=== PATIENT | female | born 1990 | race American Indian/Alaskan Native ===

== ENCOUNTER 2016-06-13 11:43 | Outpatient (CLI) | payer MEDICAID ==
[2016-06-13] MEDS ORDERED: LACTATED RINGERS 500 ML IV ONE (11:54)
[2016-06-13 12:03] VITALS: BP 117/65
[2016-06-13 15:04] LABS: Bacteria,Urine 1+ /HPF (Negative); Bilirubin,Urine NEG (Negative); Blood,Urine NEG (Negative); Ketones,Urine NEG (Negative); Leukocyte Esterase,Urine LG (Negative); Mucus,Urine 2+ /HPF; Nitrite,Urine NEG (Negative); Urobilinogen,Urine < 2.0 mg/dL (<2.0)
[2016-06-13] MEDS ORDERED: BRETHINE SUB-Q ONE ×3 (16:01→17:19)
[2016-06-13] MEDS ORDERED: ceFAZolin 2 GM in NACL 0.9% 100 ML IV ONE ×2 (17:13→18:00)
[2016-06-13] MEDS ORDERED: ANCEF/STERILE WATER 2 GM/20 ML 2 GM/20 ML SYRINGE IV SCH (18:00)
== END 2016-06-13 18:17 | disposition home or self-care (01) ==
LOC: TRG 11:43
PROVIDERS: ATTEND Obstetrics & Gynecology
DX: O47.03 False labor before 37 completed weeks of gestation, third trimester (principal); Z3A.35 35 weeks gestation of pregnancy
CPT/HCPCS: 59025; 81001; 96360; 96361; 96365; 96372; J0690; J3105; J7120

== ENCOUNTER 2017-05-07 16:06 | Emergency (ER) | payer MEDICAID, OTHER ==
[2017-05-07 16:11] VITALS: BP 122/74
--- NOTE | 2017-05-07 17:04 | Emergency Department Report ---
Blank Doc - Documentation Documentation: 27 year old -[place] female comes to the ED with cough, congestion, sore throat, runny nose, for the past 5 days not improving with over-the- counter medications. No fever, no chills. History of HIV compliant with medications.
--- NOTE | 2017-05-07 18:13 | XRay Report ---
FINAL REPORT EXAM: XR CHEST ROUTINE 2V HISTORY: cough, uri, TECHNIQUE: PA and lateral views of the chest PRIORS: CXR 07/08/2016 FINDINGS: Lines, tubes, and devices: N/A Lungs and pleura: Trachea is normal in position. Lungs are clear of infiltrate, pleural effusion, vascular congestion, or pneumothorax. No change. Cardiomediastinal silhouette: Cardiac and mediastinal silhouettes are unremarkable. Other: Bony structures are intact. IMPRESSION: No acute cardiopulmonary process seen. No change.
--- NOTE | 2017-05-07 18:44 | Emergency Department Report ---
HPI - General Chief Complaint: Upper Respiratory Infection - HPI HPI: 27 year old -[place] female comes to the ED with cough, congestion, sore throat, runny nose, for the past 5 days not improving with over-the- counter medications. No fever, no chills. History of HIV compliant with medications. ED Past Medical Hx - Past Medical History Hx Hypertension: No Hx Congestive Heart Failure: No Hx Diabetes: No Hx Deep Vein Thrombosis: No Hx Renal Disease: No Hx Sickle Cell Disease: No Hx Seizures: No Hx Asthma: No Hx COPD: No Hx HIV: Yes - Surgical History Past Surgical History?: Yes Additional Surgical History: C/S - Social History Smoking Status: Never Smoker Substance Use Type: None - Medications Home Medications: Home Medications Medication Instructions Recorded Confirmed Last Taken Type Azithromycin 500 mg PO BID 04/10/15 07/06/16 07/05/16 History Doxycycline Hyclate [Doxycycline 100 mg PO BID 04/10/15 07/06/16 04/10/15 08:00 History Hyclate CAP] Fluconazole 150 mg PO BID 04/10/15 07/06/16 04/10/15 08:00 History Pnv with Ca,No.72/Iron/FA 1 tab PO DAILY 04/10/15 07/06/16 07/05/16 History [ Plus Tablet] Pnv with Ca,No.72/Iron/FA 1 tab PO DAILY 04/10/15 07/06/16 07/05/16 History [ Plus Tablet] Tinidazole 500 mg PO BID 04/10/15 07/06/16 04/10/15 08:00 History Valacyclovir HCl [valACYclovir] 500 mg PO BID 04/10/15 07/06/16 07/05/16 History 500 metroNIDAZOLE 500 mg PO BID 04/10/15 07/06/16 04/10/15 08:00 History oxyCODONE /ACETAMINOPHEN [Percocet 1 tab PO Q6HR PRN #40 tablet 04/10/15 Unknown Rx 5/325] Abacavir/Lamivudine/Zidovudine 1 tab PO BID #60 tablet 04/13/15 07/06/16 Rx [Aymsevlg-Qhwzxbhrmi-Bkghyauzaa TAB] Docusate Sodium [Colace] 100 mg PO BID PRN #60 capsule 04/13/15 07/06/16 Unknown Rx Ferrous Sulfate [Feosol 325 MG tab] 325 mg PO TID #120 tablet 04/13/15 07/06/16 Unknown Rx Ibuprofen [Motrin 800 MG tab] 800 mg PO Q6H PRN #40 tablet 04/13/15 07/06/16 Unknown Rx Ferrous Sulfate [Feosol 325 MG tab] 325 mg PO TID #60 tablet 07/07/16 Unknown Rx Ibuprofen [Motrin] 600 mg PO Q8H PRN #30 tablet 07/07/16 Unknown Rx oxyCODONE /ACETAMINOPHEN [Percocet 1 tab PO Q6HR PRN #30 tablet 07/07/16 Unknown Rx 5/325] Docusate Sodium [Colace] 100 mg PO BID PRN #60 capsule 07/08/16 Unknown Rx Benzonatate [Tessalon Perles] 100 mg PO Q8HR #30 capsule 05/07/17 Unknown Rx Cephalexin [Keflex] 500 mg PO Q12HR #14 cap 05/07/17 Unknown Rx ED Review of Systems ROS: Stated complaint: COLD SYMPTOMS Other details as noted in HPI Comment: All other systems reviewed and negative ENT: ear pain Respiratory: cough Cardiovascular: chest pain Physical Exam - Physical Exam Vital Signs: Vital Signs 05/07/17 16:10 Temperature 98.8 F Pulse Rate 94 H Respiratory 20 Rate Blood Pressure 122/74 [Right] O2 Sat by Pulse 100 Oximetry Physical Exam: - Physical Exam Physical Exam: - General Limitations: No Limitations General appearance: alert, in no apparent distress, obese - Head Head exam: Present: atraumatic, normocephalic - Eye Eye exam: Present: normal appearance - ENT ENT exam: Present: mucous membranes moist - Neck Neck exam: Present: normal inspection - Respiratory Respiratory exam: Present: normal lung sounds bilaterally. Absent: respiratory distress - Cardiovascular Cardiovascular Exam: Present: normal rhythm, tachycardia. Absent: systolic murmur, diastolic murmur, rubs, gallop - GI/Abdominal GI/Abdominal exam: Present: soft, normal bowel sounds - Extremities Exam Extremities exam: Present: normal inspection - Back Exam Back exam: Present: normal inspection - Neurological Exam Neurological exam: Present: alert, oriented X3 - Psychiatric Psychiatric exam: normal affect and mood - Skin Skin exam: Present: warm, dry, intact, normal color. Absent: rash ED Course Vital Signs 05/07/17 16:10 Temperature 98.8 F Pulse Rate 94 H Respiratory 20 Rate Blood Pressure 122/74 [Right] O2 Sat by Pulse 100 Oximetry Critical care attestation.: If time is entered above; I have spent that time in minutes in the direct care of this critically ill patient, excluding procedure time. ED Disposition Clinical Impression: Acute bronchitis Qualifiers: Bronchitis organism: unspecified organism Qualified Code(s): J20.9 - Acute bronchitis, unspecified Disposition: - TO HOME OR SELFCARE Is pt being admited?: No Does the pt Need Aspirin: No Condition: Stable Instructions: Acute Bronchitis (ED) Prescriptions: Benzonatate [Tessalon Perles] 100 mg PO Q8HR #30 capsule Cephalexin [Keflex] 500 mg PO Q12HR #14 cap Referrals: PRIMARY CARE, [Primary Care Provider] - 3-5 Days
== END 2017-05-07 18:52 | disposition home or self-care (01) ==
LOC: ED 16:06
DX: J02.9 Acute pharyngitis, unspecified (principal)
CPT/HCPCS: 71046

== ENCOUNTER 2017-11-24 09:51 | Emergency (ER) | payer SELFPAY ==
--- NOTE | 2017-11-24 13:38 | Emergency Department Report ---
ED Abdominal Pain HPI - General Chief Complaint: Abdominal Pain Stated Complaint: ABD PAIN Time Seen by Provider: 11/24/17 13:04 Source: patient Mode of arrival: Ambulatory Limitations: No Limitations - History of Present Illness Initial Comments: This is a 27-year-old -Cyp[place] female who presents with epigastric pain for one week. Past medical history of HIV. Patient reports pain is a burning sensation after eating meals. She is currently taking Zantac twice a day when no improvement of symptoms. Patient also reports pain is worse with laying flat. She reports some nausea without vomiting. She denies fever, chest pain, shortness of breath, frequency, urgency, dysuria. MD Complaint: abdominal pain Onset/Timin -: week(s) Location: epigastric Radiation: none Migration to: no migration Severity: moderate Severity scale (0 -10): 6 Quality: cramping Consistency: intermittent Improves With: nothing Worsens With: eating Associated Symptoms: nausea. denies: vomiting, diarrhea, fever, chills, constipation, dysuria, hematemesis, hematochezia, melena, hematuria, anorexia, syncope Treatments Prior to Arrival: antacids - Related Data LMP Date: 11/15/17 Home Medications Medication Instructions Recorded Confirmed Last Taken Azithromycin 500 mg PO BID 04/10/15 07/06/16 07/05/16 Doxycycline Hyclate [Doxycycline 100 mg PO BID 04/10/15 07/06/16 04/10/15 08:00 Hyclate CAP] Fluconazole 150 mg PO BID 04/10/15 07/06/16 04/10/15 08:00 Pnv with Ca,No.72/Iron/FA 1 tab PO DAILY 04/10/15 07/06/16 07/05/16 [ Plus Tablet] Pnv with Ca,No.72/Iron/FA 1 tab PO DAILY 04/10/15 07/06/16 07/05/16 [ Plus Tablet] Tinidazole 500 mg PO BID 04/10/15 07/06/16 04/10/15 08:00 Valacyclovir HCl [valACYclovir] 500 mg PO BID 04/10/15 07/06/16 07/05/16 500 metroNIDAZOLE 500 mg PO BID 04/10/15 07/06/16 04/10/15 08:00 Previous Rx's Medication Instructions Recorded Last Taken Type oxyCODONE /ACETAMINOPHEN [Percocet 1 tab PO Q6HR PRN #40 tablet 04/10/15 Unknown Rx 5/325] Abacavir/Lamivudine/Zidovudine 1 tab PO BID #60 tablet 04/13/15 07/05/16 Rx [Bnpxokod-Tmjlknvgzz-Ufgzzzwqjn TAB] Docusate Sodium [Colace] 100 mg PO BID PRN #60 capsule 04/13/15 Unknown Rx Ferrous Sulfate [Feosol 325 MG tab] 325 mg PO TID #120 tablet 04/13/15 Unknown Rx Ibuprofen [Motrin 800 MG tab] 800 mg PO Q6H PRN #40 tablet 04/13/15 Unknown Rx Ferrous Sulfate [Feosol 325 MG tab] 325 mg PO TID #60 tablet 07/07/16 Unknown Rx Ibuprofen [Motrin] 600 mg PO Q8H PRN #30 tablet 07/07/16 Unknown Rx oxyCODONE /ACETAMINOPHEN [Percocet 1 tab PO Q6HR PRN #30 tablet 07/07/16 Unknown Rx 5/325] Docusate Sodium [Colace] 100 mg PO BID PRN #60 capsule 07/08/16 Unknown Rx Benzonatate [Tessalon Perles] 100 mg PO Q8HR #30 capsule 05/07/17 Unknown Rx cephALEXin [Keflex] 500 mg PO Q12HR #14 cap 05/07/17 Unknown Rx Omeprazole 40 mg PO DAILY #30 capsule. 11/24/17 Unknown Rx Allergies Allergy/AdvReac Type Severity Reaction Status Date / Time No Known Allergies Allergy Verified 05/07/17 16:07 ED Review of Systems ROS: Stated complaint: ABD PAIN Other details as noted in HPI Constitutional: denies: chills, fever Respiratory: denies: cough, shortness of breath, wheezing Cardiovascular: denies: chest pain, palpitations Gastrointestinal: abdominal pain, nausea. denies: vomiting, diarrhea, constipation, hematochezia Genitourinary: denies: urgency, dysuria, discharge Neurological: denies: headache, weakness, paresthesias Psychiatric: denies: anxiety, depression ED Past Medical Hx - Past Medical History Hx Hypertension: No Hx Congestive Heart Failure: No Hx Diabetes: No Hx Deep Vein Thrombosis: No Hx Renal Disease: No Hx Sickle Cell Disease: No Hx Seizures: No Hx Asthma: No Hx COPD: No Hx HIV: Yes - Surgical History Additional Surgical History: C/S - Social History Smoking Status: Never Smoker Substance Use Type: None - Medications Home Medications: Home Medications Medication Instructions Recorded Confirmed Last Taken Type Azithromycin 500 mg PO BID 04/10/15 07/06/16 07/05/16 History Doxycycline Hyclate [Doxycycline 100 mg PO BID 04/10/15 07/06/16 04/10/15 08:00 History Hyclate CAP] Fluconazole 150 mg PO BID 04/10/15 07/06/16 04/10/15 08:00 History Pnv with Ca,No.72/Iron/FA 1 tab PO DAILY 04/10/15 07/06/16 07/05/16 History [ Plus Tablet] Pnv with Ca,No.72/Iron/FA 1 tab PO DAILY 04/10/15 07/06/16 07/05/16 History [ Plus Tablet] Tinidazole 500 mg PO BID 04/10/15 07/06/16 04/10/15 08:00 History Valacyclovir HCl [valACYclovir] 500 mg PO BID 04/10/15 07/06/16 07/05/16 History 500 metroNIDAZOLE 500 mg PO BID 04/10/15 07/06/16 04/10/15 08:00 History oxyCODONE /ACETAMINOPHEN [Percocet 1 tab PO Q6HR PRN #40 tablet 04/10/15 Unknown Rx 5/325] Abacavir/Lamivudine/Zidovudine 1 tab PO BID #60 tablet 04/13/15 07/06/16 Rx [Bqbdweuh-Cfvfqezgvz-Ejywihgvuf TAB] Docusate Sodium [Colace] 100 mg PO BID PRN #60 capsule 04/13/15 07/06/16 Unknown Rx Ferrous Sulfate [Feosol 325 MG tab] 325 mg PO TID #120 tablet 04/13/15 07/06/16 Unknown Rx Ibuprofen [Motrin 800 MG tab] 800 mg PO Q6H PRN #40 tablet 04/13/15 07/06/16 Unknown Rx Ferrous Sulfate [Feosol 325 MG tab] 325 mg PO TID #60 tablet 07/07/16 Unknown Rx Ibuprofen [Motrin] 600 mg PO Q8H PRN #30 tablet 07/07/16 Unknown Rx oxyCODONE /ACETAMINOPHEN [Percocet 1 tab PO Q6HR PRN #30 tablet 07/07/16 Unknown Rx 5/325] Docusate Sodium [Colace] 100 mg PO BID PRN #60 capsule 07/08/16 Unknown Rx Benzonatate [Tessalon Perles] 100 mg PO Q8HR #30 capsule 05/07/17 Unknown Rx cephALEXin [Keflex] 500 mg PO Q12HR #14 cap 05/07/17 Unknown Rx Omeprazole 40 mg PO DAILY #30 capsule. 11/24/17 Unknown Rx ED Physical Exam - General Limitations: No Limitations General appearance: alert, in no apparent distress - Respiratory Respiratory exam: Present: normal lung sounds bilaterally. Absent: respiratory distress - Cardiovascular Cardiovascular Exam: Present: regular rate, normal rhythm. Absent: systolic murmur, diastolic murmur, rubs, gallop - GI/Abdominal GI/Abdominal exam: Present: soft, tenderness (epigastric tenderness), normal bowel sounds. Absent: distended, guarding, rebound, rigid, organomegaly, mass - Neurological Exam Neurological exam: Present: alert, oriented X3 - Psychiatric Psychiatric exam: Present: normal affect, normal mood - Skin Skin exam: Present: warm, dry, intact, normal color. Absent: rash ED Course Vital Signs 11/24/17 11:40 Temperature 98.9 F Pulse Rate 55 L Respiratory 16 Rate Blood Pressure 123/57 O2 Sat by Pulse 100 Oximetry ED Medical Decision Making - Lab Data Result diagrams: 11/24/17 13:34 11/24/17 13:34 Lab Results 11/24/17 11/24/17 11/24/17 Range/Units 13:34 13:34 13:34 WBC 3.1 L (4.5-11.0) K/mm3 RBC 5.31 H (3.65-5.03) M/mm3 Hgb 12.3 (10.1-14.3) gm/dl Hct 39.2 (30.3-42.9) % MCV 74 L (79-97) fl MCH 23 L (28-32) pg MCHC 31 (30-34) % RDW 14.4 (13.2-15.2) % Plt Count 150 (140-440) K/mm3 Sodium 137 (137-145) mmol/L Potassium 3.4 L (3.6-5.0) mmol/L Chloride 98.5 (98-107) mmol/L Carbon Dioxide 27 (22-30) mmol/L Anion Gap 15 mmol/L BUN 8 (7-17) mg/dL Creatinine 0.6 L (0.7-1.2) mg/dL Estimated GFR > 60 ml/min BUN/Creatinine Ratio 13 % Glucose 68 (65-100) mg/dL Calcium 9.5 (8.4-10.2) mg/dL Lipase 26 (13-60) units/L - Radiology Data Radiology results: report reviewed, image reviewed ULTRASOUND ABDOMEN COMPLETE: TECHNIQUE: Transabdominal ultrasound with color Doppler interrogation. HISTORY: abdominal pain. COMPARISON: none. FINDINGS: LIVER: The liver is normal size and contour. A 2.6 cm hyperechoic lesion in the right hepatic lobe is identified which is highly suggestive of a cavernous hemangioma. BILIARY SYSTEM: Normal. PANCREAS: Normal. SPLEEN: Normal. KIDNEYS: Normal. AORTA/IVC: Normal. ASCITES: None. IMPRESSION: Unremarkable exam. 2.6 cm cavernous hemangioma in the right hepatic lobe. - Medical Decision Making This is a 27 y.o. female presents with epigastric pain and nausea for 1 week. Patient was examined by me. Vitals are normal and patient is in no acute distress. Obtained labs and ultrasound of abdomen. Potassium low, patient given Klor-Con 40 mEq once. All other labs are unremarkable. Ultrasound dictated by radiologist's report revealed myself with no acute findings. Start omeprazole 40 mg by mouth daily for susceptible GERD. Patient discharged home in stable condition. Follow-up with primary care provider. Referral to gastroenterology. Critical care attestation.: If time is entered above; I have spent that time in minutes in the direct care of this critically ill patient, excluding procedure time. ED Disposition Clinical Impression: Epigastric pain, Nausea alone GERD (gastroesophageal reflux disease) Qualifiers: Esophagitis presence: with esophagitis Qualified Code(s): K21.0 - Gastro- esophageal reflux disease with esophagitis Disposition: TO HOME OR SELFCARE Is pt being admited?: No Does the pt Need Aspirin: No Condition: Stable Instructions: Abdominal Pain (ED), Gastroesophageal Reflux Disease (ED) Additional Instructions: Follow-up with gastroenterology for further testing. Follow up with her primary care provider in 2-3 days. Prescriptions: Omeprazole 40 mg PO DAILY #30 capsule. Referrals: [facility] [Provider Group] - 3-5 Days [facility] [Outside] - 3-5 Days RICKIE FLORES JR, MD [Staff Physician] - 3-5 Days Forms: Work/School Release Form(ED) Time of Disposition: 15:34 Print Language: BURUNDIAN
[2017-11-24 13:53] LABS: Hematocrit 39.2 % (30.3-42.9); Hemoglobin 12.3 gm/dl (10.1-14.3); Mean Corpuscular Hemoglobin 23 pg (28-32); Mean Corpuscular Volume 74 fl (79-97); Red Blood Count 5.31 M/mm3 (3.65-5.03)
[2017-11-24 13:54] LABS: Mean Corpuscular HGB Conc 31 % (30-34); Platelet Count 150 K/mm3 (140-440); Red Cell Distribution Width 14.4 % (13.2-15.2)
[2017-11-24 14:07] LABS: BUN/Creatinine Ratio 13; Blood Urea Nitrogen 8 mg/dL (7-17); Calcium 9.5 mg/dL (8.4-10.2); Hemolysis Index 8
--- NOTE | 2017-11-24 14:38 | Ultrasound Report ---
ULTRASOUND ABDOMEN COMPLETE: TECHNIQUE: Transabdominal ultrasound with color Doppler interrogation. HISTORY: abdominal pain. COMPARISON: none. FINDINGS: LIVER: The liver is normal size and contour. A 2.6 cm hyperechoic lesion in the right hepatic lobe is identified which is highly suggestive of a cavernous hemangioma. BILIARY SYSTEM: Normal. PANCREAS: Normal. SPLEEN: Normal. KIDNEYS: Normal. AORTA/IVC: Normal. ASCITES: None. IMPRESSION: Unremarkable exam. 2.6 cm cavernous hemangioma in the right hepatic lobe.
[2017-11-24] MEDS ORDERED: K-DUR PO ONE (15:06)
[2017-11-24 16:06] VITALS: BP 125/58
== END 2017-11-24 19:08 | disposition home or self-care (01) ==
LOC: ED 09:51
DX: K21.0 Gastro-esophageal reflux disease with esophagitis (principal)
CPT/HCPCS: 36415; 76700; 80048; 83690; 85027; 99284